=== PATIENT | male | born 1955 | race Caucasian/White ===

== ENCOUNTER 2021-09-04 20:06 | Emergency (ER) | payer MEDICARE, BC ==
[2021-09-04] MEDS ORDERED: LORazepam 2 MG/ML SDV IVPUSH ONE (22:00)
== END 2021-09-05 00:09 | disposition home or self-care (01) ==
LOC: JD.ED 20:06
DX: R06.02 Shortness of breath (principal); E78.00 Pure hypercholesterolemia, unspecified; Z88.0 Allergy status to penicillin; Z95.1 Presence of aortocoronary bypass graft
CPT/HCPCS: 36415; 71045; 80053; 83735; 83880; 84484; 85025; 85610; 93005; 96374; 99285; J2060

== ENCOUNTER 2021-09-20 00:15 | Emergency (ER) | payer MEDICARE, BC ==
[2021-09-20] MEDS ORDERED: LORazepam 2 MG/ML SDV IVPUSH ONE (00:41)
[2021-09-20] MEDS ORDERED: HYDROmorphone 0.5 MG/0.5 ML Syringe IVPUSH ONE (00:41)
[2021-09-20] MEDS ORDERED: Sodium Chloride 0.9% 10 ML Syringe FLUSH PRN (00:41)
[2021-09-20] MEDS ORDERED: Lidocaine 2% Jelly 10 ML Urojet MUCMEM ONE (00:43)
[2021-09-20] MEDS ORDERED: Sodium Chloride 0.9% 1,000 ML IV SCH ×4 (00:45→03:45)
[2021-09-20] MEDS ORDERED: Lactated Ringers 1,000 ML IV ONE (02:10)
[2021-09-20] MEDS ORDERED: Sodium Chloride 0.9% 2,000 ML ONE (03:40)
== END 2021-09-20 05:20 ==
LOC: JD.ED 00:15
DX: C67.9 Malignant neoplasm of bladder, unspecified (principal); I95.9 Hypotension, unspecified; R31.9 Hematuria, unspecified; E78.00 Pure hypercholesterolemia, unspecified; Z88.0 Allergy status to penicillin; Z79.82 Long term (current) use of aspirin; Z79.899 Other long term (current) drug therapy; Z95.1 Presence of aortocoronary bypass graft; Z79.02 Long term (current) use of antithrombotics/antiplatelets; Z20.822 Contact with and (suspected) exposure to COVID-19
CPT/HCPCS: 36415; 36430; 51702; 80053; 85018; 85025; 86140; 86850; 86900; 86901; 86922; 96374; 96375; 99284; J1170; J2060; J3490; J7030; J7120; P9016; U0002; 99285